=== PATIENT | male | born 1995 | race Caucasian/White ===

== ENCOUNTER 2016-12-09 20:57 | Emergency (ER) | payer BC ==
[~2016-12-09] VITALS: Ht 175.3 cm; Wt 65.0 kg
[2016-12-09 20:59] VITALS: BP 150/70; PULSE 120; RESP 16; TEMP 98.9; O2SAT 98
--- NOTE | 2016-12-09 21:26 | PD ---
HPI Chief Complaint: Laceration/Skin Injury Time Seen by Provider: 21:18 Travel History International Travel<30 days: Yes Contact w/Intl Traveler<30days: Yes Name of Country Traveled to: [place] Traveled to known affect area: No History of Present Illness HPI 21-year-old male presents for evaluation of right eyebrow laceration. 30 minutes prior to arrival patient was placed basketball when he got elbowed in the eyebrow. No loss of consciousness. He is complaining of laceration to the right eyebrow. He has minimal pain. Denies any global headache, confusion or amnesia, nausea or vomiting, blurred vision. He denies any other injuries. He is not on any sort of [id number] anticoagulation. His last tetanus vaccination was approximate 7 years ago. No other complaints. [facility] Social History Alcohol Use: Yes Tobacco Use: No Allergies-Medications (Allergen,Severity, Reaction): Coded Allergies: No Known Allergies (Unverified , 12/09/16) Review of Systems Except as stated in HPI: all other systems reviewed are Neg Physical Exam Narrative GENERAL: Well-developed well-nourished male in no acute distress answering questions appropriately vital signs reviewed SKIN: Warm and dry. 1.5 cm linear horizontal laceration to the right eyebrow. HEAD: Skin as noted above. Normocephalic. EYES: Pupils equal and round reactive to light extraocular muscles are intact no periorbital ecchymosis. No scleral icterus. No injection or drainage. ENT: No nasal bleeding or discharge. Mucous membranes pink and moist. No hemotympanum no Noel's sign or rhinorrhea NECK: Trachea midline. No JVD. CARDIOVASCULAR: Regular rate and rhythm. No murmur appreciated. RESPIRATORY: No accessory muscle use. Clear to auscultation. Breath sounds equal bilaterally. MUSCULOSKELETAL: No obvious deformities. NEUROLOGICAL: Awake and alert. No obvious cranial nerve deficits. Motor grossly within normal limits. Normal speech. Data Data Last Documented VS Vital Signs Date Time Temp Pulse Resp B/P Pulse Ox O2 Delivery O2 Flow Rate FiO2 12/09/16 20:59 98.9 120 16 150/70 98 Room Air Orders Lidocai-Epi 1%-1:100,000 Inj (Xylocaine- (12/09/16 21:30) Tetanus/Diphtheria Tox Adult (Tetanus/Di (12/09/16 21:30) Lidocai-Epi 1%-1:100,000 Inj (Xylocaine- (12/09/16 21:45) Lidocai-Epi 1%-1:100,000 Inj (Xylocaine- (12/09/16 21:37) MDM Medical Decision Making Medical Screen Exam Complete: Yes Emergency Medical Condition: Yes Medical Record Reviewed: Yes Differential Diagnosis Laceration, abrasion, fracture, intracranial hemorrhage Narrative Course 21-year-old male presents with a laceration to the right eyebrow after being elbowed in the face while playing basketball. He has no neurologic deficits to warrant imaging. The laceration was repaired with sutures, he verbally consented. He is stable for discharge. Tetanus status updated. Procedures Procedure Narrative LACERATION LOCATION: Right eyebrow LENGTH: 1.5 cm NUMBER OF STITCHES/JACQUIE: 5 REPAIR: The area of the laceration was prepped with Betadine and sterilely draped. The laceration was infiltrated with 1% lidocaine with epinephrine. The wound was copiously irrigated and explored without evidence of foreign body , tendon injury or neurovascular injury. The wound was closed using 6-0 PROLENE simple interrupted. This was a single layer repair. A sterile dressing was applied. The patient was advised to keep the dressing clean and dry. Patient tolerated the procedure well. Diagnosis Primary Impression: Facial laceration Qualified Code: S01.81XA - Facial laceration, initial encounter Additional Instructions: Wash gently with soap and water and apply antibiotic cream daily. Return in 5- 7 days for suture removal. Med/Other Pt SpecificInfo: Wound Care Disposition: DISCHARGE HOME Condition: Stable Bin Cerrato Dec 09, 2016 21:25
[2016-12-09] MEDS ORDERED: LIDOCAINE 1%/EPINEPHrine 1:100,000 SOLN 20 ML VIAL INFIL ONE ×2 (21:30→21:45)
[2016-12-09] MEDS ORDERED: TETANUS/DIPHTHERIA TOXOID ADULT 0.5 ML VIAL IM ONE (21:30)
[2016-12-09] MEDS ORDERED: LIDOCAINE 1%/EPINEPHrine 1:100,000 SOLN 30 ML VIAL ONE (21:37)
== END 2016-12-09 22:31 | disposition home or self-care (01) ==
LOC: NEPD 20:57
DX: S01.111A Laceration without foreign body of right eyelid and periocular area, initial encounter (principal); W50.0XXA Accidental hit or strike by another person, initial encounter; Y93.67 Activity, basketball
CPT/HCPCS: 12011; 90471; 90714